=== PATIENT | male | born 1985 | race Caucasian/White ===

== ENCOUNTER 2020-04-27 20:01 | Inpatient (IN) | payer OTHER ==
[~2020-04-27] VITALS: Ht 170.2 cm; Wt 96.2 kg
--- NOTE | 2020-04-27 20:01 | NUR ---
[id number] FROM HOME FOR PALPITATIONS SINCE YDAY, WORSE IN LAST 3HRS, PT AAOX4, DENIES ANY SOB. PLACED ON MONITOR. VSS. PENDING ER PROVIDER JENS
[2020-04-27] MEDS ORDERED: DILTIAZEM HCL 25 MG IV ONE ×2 (20:23→22:08)
[2020-04-27] MEDS ORDERED: IV NS 0.9% 1,000 ML BAG IV ONE (20:30)
[2020-04-27] MEDS ORDERED: DILTIAZEM HCL 25 MG IV IV ONE (20:30)
[2020-04-27 20:48] LABS: BASOPHILS % (AUTO) 0.5 % (0.0-2.0); EOSINOPHILS % (AUTO) 2.9 % (0.0-6.0); HEMATOCRIT 43 % (39-51); HEMOGLOBIN 14.7 g/dL (13.5-17.5); LYMPHOCYTES # (AUTO) 1.4 /CMM (0.8-4.8); LYMPHOCYTES % (AUTO) 33.6 % (20.0-44.0); MEAN CORPUSCULAR HGB CONC 34 g/dl (31.0-36.0); MEAN CORPUSCULAR VOLUME 99 fL (80-96); MONOCYTES # (AUTO) 0.3 /CMM (0.1-1.30); MONOCYTES % (AUTO) 7.3 % (2.0-12.0); NEUTROPHILS # (AUTO) 2.4 /CMM (1.8-8.9); NEUTROPHILS % (AUTO) 55.7 % (43.0-81.0); PLATELET COUNT (AUTO) 101 /CMM (150-450); RED BLOOD CELL COUNT(AUTO) 4.35 MIL/uL (4.5-6.0); WHITE BLOOD COUNT (AUTO) 4.3 K/uL (4.3-11.0)
[2020-04-27] MEDS ORDERED: DILTIAZEM HCL 50 MG IV IV ONE (21:00)
[2020-04-27 21:05] LABS: CALCIUM, SERUM 9.3 mg/dL (8.5-10.1); CARBON DIOXIDE 22 mmol/L (21-32); CHLORIDE 102 mmol/L (98-107); GLUCOSE 115 mg/dL (74-106); SODIUM SERUM 140 mmol/L (136-145); UREA NITROGEN, BLOOD 9 mg/dL (7-18)
[2020-04-27 21:17] LABS: ALANINE AMINOTRANSFERASE 546 U/L (12-78); ALBUMIN 4.1 g/dL (3.4-5.0); ALKALINE PHOSPHATASE 100 U/L (46-116); ASPARTATE AMINOTRANSFERASE 348 U/L (15-37); B-TYPE NATRIURETIC PEPTIDE 146 PG/ML (0-125); BILIRUBIN,DIRECT 0.2 mg/dL (0.0-0.2); BILIRUBIN,TOTAL 0.5 mg/dL (0.2-1.0); TOTAL PROTEIN, SERUM 7.3 g/dL (6.4-8.2)
[2020-04-27] MEDS ORDERED: POTASSIUM CHLORIDE 20 MEQ TAB.PRT.SR PO ONE ×2 (21:30→22:58)
[2020-04-27 21:33] LABS: MAGNESIUM 2.3 mg/dL (1.8-2.4)
[2020-04-27] MEDS ORDERED: ACETAMINOPHEN 325 MG TABLET PO PRN (22:00)
[2020-04-27] MEDS ORDERED: TEMAZEPAM 15 MG CAPSULE PO PRN (22:00)
[2020-04-27] MEDS ORDERED: HYDROCODONE/APAP 5/325MG TABLET PO PRN (22:00)
[2020-04-27] MEDS ORDERED: MORPHINE SULFATE INJ 2 MG/ML DISP.SYRIN IV PRN (22:00)
[2020-04-27] MEDS ORDERED: ONDANSETRON HCL/PF 4 MG/2 ML VIAL IVP PRN (22:00)
[2020-04-27] MEDS ORDERED: MAG HYDROX/AL HYDROX/SIMETH 30 ML UDC PO PRN (22:00)
[2020-04-27] MEDS ORDERED: Z GUARD REMEDY 2 OZ OINT TP PRN (22:00)
[2020-04-27] MEDS ORDERED: LORAZEPAM INJ 2 MG/ML VIAL IV PRN (22:00)
[2020-04-27] MEDS ORDERED: MAGNESIUM HYDROXIDE 30 ML UDC PO PRN (22:00)
[2020-04-27] MEDS ORDERED: DILTIAZEM HCL 50 MG IV ONE (22:08)
[2020-04-27] MEDS: DILTIAZEM HCL IV 125 MG in IV NS 0.9% 100 ML IV PRN (22:08)
--- NOTE | 2020-04-27 22:47 | NUR ---
REPORT GIVEN KARI RIVERA FOR SARAH PT WILL BE TRANSPORTED TO 1ST FLOOR
--- NOTE | 2020-04-27 23:00 | NUR ---
RN ADMITTING NOTE RECEIVED PATIENT FROM ER VIA [facility] ACCOMPANIED BY SOHAM RIVERA AND ANOTHER ER STAFF; ADMITTING DIAGNOSIS OF ATRIAL FIBRILLATION WITH RVR, AND CHEST PAIN; COVID RAPID TEST DONE, RESULT IS NEGATIVE. PATIENT AWAKE, ALERT AND ORIENTED X4. PRIMARY LANGUAGE IS [place], BUT SPEAKS AND UNDERSTANDS PORTUGUESE. DENIES PAIN. IN NO S/SX OF ACUTE DISTRESS AT THIS TIME. NO SOB NOTED. PATIENT'S BREATHING IS EVEN AND UNLABORED. SATURATION 97% ON ROOM AIR, AFIB WITH RVR ON THE MONITOR, HR AT 120'S. NOTED IV SITE AT L HAND/WRIST [id number], FLUSHING AND PATENT, NO S/S OF INFECTION OR INFILTRATION, WITH CARDIZEM DRIP INFUSING AT 5 MG/HR. SAFETY MEASURES IMPLEMENTED. PATIENT BED ALARM IS ON. HEAD OF BED ELEVATED. BED IS LOCKED, IN LOWEST POSITION AND SIDE RAILS UP. CALL LIGHT WITHIN REACH OF THE PATIENT. WILL CONTINUE TO MONITOR AND REASSESS FOR ANY CHANGES. WILL ATTEND TO ALL MD ADMITTING ORDERS.
[2020-04-27] MEDS: IV NS 0.9% 1,000 ML IV PRN (23:25)
[2020-04-28] VITALS: BP 124/55
[2020-04-28 04:00] VITALS: BP 101/59
[2020-04-28 06:46] LABS: BASOPHILS % (AUTO) 0.6 % (0.0-2.0); EOSINOPHILS % (AUTO) 4.2 % (0.0-6.0); HEMATOCRIT 43 % (39-51); HEMOGLOBIN 14.4 g/dL (13.5-17.5); LYMPHOCYTES % (AUTO) 37.1 % (20.0-44.0); MEAN CORPUSCULAR HGB CONC 34 g/dl (31.0-36.0); MEAN CORPUSCULAR VOLUME 100 fL (80-96); MONOCYTES # (AUTO) 0.4 /CMM (0.1-1.30); MONOCYTES % (AUTO) 6.8 % (2.0-12.0); NEUTROPHILS # (AUTO) 2.7 /CMM (1.8-8.9); NEUTROPHILS % (AUTO) 51.3 % (43.0-81.0); PLATELET COUNT (AUTO) 94 /CMM (150-450); RED BLOOD CELL COUNT(AUTO) 4.25 MIL/uL (4.5-6.0); WHITE BLOOD COUNT (AUTO) 5.3 K/uL (4.3-11.0)
--- NOTE | 2020-04-28 07:05 | NUR ---
RN OPENING NOTES RECEIVED PT AWAKE, A/O X4. ON ROOM AIR, SATURATION @97%. NO SOB OR ANY S/SX OF ACUTE DISTRESS AT THIS TIME. NO PAIN REPORTED. AFIB WITH RVR ON TELE MONITOR. IV SITE AT L HAND #18 INTACT, PATENT AND FLUSHED. NS RUNNING @100ML/HR WITH CARDIZEM DRIP INFUSING AT 10MG/HR. SAFETY MEASURES IMPLEMENTED. CALL LIGHT WITHIN REACH. BED ALARM ON. HOB ELEVATED. BED LOCKED AND IN LOWEST POSITION WITH SIDE RAILS UP X2. WILL CONTINUE TO MONITOR.
[2020-04-28] MEDS: DILTIAZEM HCL IV 125 MG in IV NS 0.9% 100 ML IV PRN (07:07)
[2020-04-28 07:11] LABS: CALCIUM, SERUM 8.2 mg/dL (8.5-10.1); PHOSPHORUS 3.3 mg/dL (2.5-4.9); POTASSIUM 3.6 mmol/L (3.5-5.1)
--- NOTE | 2020-04-28 07:25 | NUR ---
RN NOTES DR. ZENG ORDERED TO DC CONRADO PADILLA. ORDER CARRIED OUT.
[2020-04-28 07:35] LABS: THYROID STIMULATING HORMONE 2.801 uIU/mL (0.358-3.74)
[2020-04-28] MEDS: Magnesium 1GM/D5W 100ML PREMIX 100 ML IV SCH ×2 (07:37→08:41)
[2020-04-28] MEDS: PANTOPRAZOLE 40 MG TABLET.DR PO SCH (07:38)
--- NOTE | 2020-04-28 07:45 | NUR ---
RN NOTES EKG RESULTS REPORTED TO DR. ZENG.
[2020-04-28 08:00] VITALS: BP 111/58
[2020-04-28] MEDS ORDERED: FLECAINIDE ACETATE (100 MG) 100 MG TABLET PO ONE (08:00)
[2020-04-28] MEDS: ASPIRIN 325 MG TABLET PO SCH (08:41)
[2020-04-28 08:47] LABS: ALBUMIN 3.5 g/dL (3.4-5.0); BILIRUBIN,DIRECT 0.3 mg/dL (0.0-0.2); BILIRUBIN,TOTAL 1.1 mg/dL (0.2-1.0); TOTAL PROTEIN, SERUM 6.5 g/dL (6.4-8.2)
[2020-04-28] MEDS ORDERED: FLECAINIDE ACETATE (100 MG) 100 MG TABLET PO SCH ×2 (09:00→21:00)
[2020-04-28 12:00] VITALS: BP 111/72
[2020-04-28] MEDS: IV NS 0.9% 1,000 ML IV PRN (14:16)
[2020-04-28 16:00] VITALS: BP 103/77
--- NOTE | 2020-04-28 18:46 | NUR ---
RN CLOSING NOTES NO SIGNIFICANT CHANGES THROUGHOUT THE SHIFT. NO SOB. NO PAIN REPORTED AT THIS TIME. DUE MEDS GIVEN. NEEDS ATTENDED. SAFETY MEASURES MAINTAINED. WILL ENDORSE TO NIGHT NURSE FOR SARAH.
--- NOTE | 2020-04-28 19:00 | NUR ---
RN OPENING NOTE RECEIVED PATIENT IN BED RESTING ALERT ORIENTED X4 VERBALLY RESPONSIVE ON ROOM AIR O2:98% IV SITE IS ON LEFT HAND INTACT PATENT IV HYDRATION NORMAL SALINE 0.9% RUNNING 100CC/HR AMBULATORY CONTINENT TO BOWEL/BLADDER SAFETY MEASURE IMPLEMENT CALL LIGHT WITHIN REACH,BED LOCKED AND IN LOW POSITON CONTINUE TO MONITOR.
[2020-04-28 20:00] VITALS: BP 117/71
[2020-04-28] MEDS: FLECAINIDE ACETATE (100 MG) 100 MG TABLET PO SCH (20:30)
[2020-04-29] VITALS: BP 119/70
[2020-04-29 04:00] VITALS: BP 123/77
--- NOTE | 2020-04-29 06:24 | NUR ---
RN CLOSING NOTE PATIENT REMAINS ON ALERT ORIENTED VERBALLY RESPONSIVE NO SOB NOT ACUTE DISTRESS NOTED ON ROOM AIR 98% IV SITE IS LEFT HAND INTACT PATENT,ALL DUE MED GIVEN MD ORDERED,KEPT COMFORTABLE KEPT CLEAN AND DRY ALL THE TIME,KEPT CALL LIGHT WITHIN REACH,ENDORSE NEXT COMING SHIFT FOR CONTINUATION OF CARE
[2020-04-29 06:52] LABS: BASOPHILS % (AUTO) 0.3 % (0.0-2.0); EOSINOPHILS % (AUTO) 2.9 % (0.0-6.0); HEMATOCRIT 39 % (39-51); HEMOGLOBIN 13.6 g/dL (13.5-17.5); LYMPHOCYTES # (AUTO) 1.1 /CMM (0.8-4.8); LYMPHOCYTES % (AUTO) 18.9 % (20.0-44.0); MEAN CORPUSCULAR HGB CONC 35 g/dl (31.0-36.0); MEAN CORPUSCULAR VOLUME 99 fL (80-96); MONOCYTES # (AUTO) 0.3 /CMM (0.1-1.30); MONOCYTES % (AUTO) 4.9 % (2.0-12.0); NEUTROPHILS # (AUTO) 4.2 /CMM (1.8-8.9); PLATELET COUNT (AUTO) 83 /CMM (150-450); RED BLOOD CELL COUNT(AUTO) 3.94 MIL/uL (4.5-6.0); WHITE BLOOD COUNT (AUTO) 5.7 K/uL (4.3-11.0)
[2020-04-29 06:54] LABS: POTASSIUM 3.9 mmol/L (3.5-5.1)
--- NOTE | 2020-04-29 07:30 | NUR ---
RN OPENING NOTES RECEIVED PT AWAKE, A/O X4. ON ROOM AIR, SATURATION @97%. NO SOB OR ANY S/SX OF ACUTE DISTRESS AT THIS TIME. NO PAIN REPORTED. AFIB WITH RVR ON TELE MONITOR. IV SITE AT L HAND #18 INTACT, PATENT AND FLUSHED. PATIENT REFUSING IV FLUIDS AT THIS TIME. SAFETY MEASURES IMPLEMENTED. CALL LIGHT WITHIN REACH. BED ALARM ON. HOB ELEVATED. BED LOCKED AND IN LOWEST POSITION WITH SIDE RAILS UP X2. WILL CONTINUE TO MONITOR AND PROVIDE TREATMENT.
[2020-04-29 08:00] VITALS: BP 125/67
[2020-04-29] MEDS: FLECAINIDE ACETATE (100 MG) 100 MG TABLET PO SCH (08:51)
[2020-04-29] MEDS: PANTOPRAZOLE 40 MG TABLET.DR PO SCH (08:51)
[2020-04-29] MEDS: ASPIRIN 325 MG TABLET PO SCH (08:51)
[2020-04-29 09:58] LABS: EOSINOPHILS % (MANUAL) 1 % (0-4); LYMPHOCYTES % (MANUAL) 16 % (16-48); MONOCYTES % (MANUAL) 5 % (0-11.0); NEUTROPHILS % (MANUAL) 78 (42-76)
[2020-04-29] MEDS ORDERED: FLEC100T2 PO (11:01)
--- NOTE | 2020-04-29 11:55 | NUR ---
DISCHARGE NOTE PATIENT DISCHARGED HOME VIA PRIVATE CAR, PICKED UP BY . IV REMOVED PRIOR TO DISCHARGE WITH NO S/S OF EXCESSIVE BLEEDING. NEW MEDICATION PRESCRIPTION PROVIDED TO PATIENT; ANSWERED DISCHARGE QUESTIONS. PATIENT STABLE AT TIME OF DISCHARGE, WENT HOME WITH ALL BELONGINGS.
--- NOTE | 2020-04-29 14:30 | NUR ---
[employer] Director: SW consult requested for alcohol abuse. SW attempted to meet with the patient but was told by RN Soon that the patient was discharged this morning. No further account services specialist interventions needed at this time.
== END 2020-04-29 13:30 | disposition home or self-care (01) | DRG 201 ==
LOC: ER 20:07 → EDBD 20:07 → TELE-TD 22:44 → TELE1 04-28 12:30
PROVIDERS: ADMIT Nurse Practitioner Acute Care; ATTEND Nurse Practitioner Acute Care
DX: I48.91 Unspecified atrial fibrillation (principal); E83.42 Hypomagnesemia; E87.6 Hypokalemia; E66.9 Obesity, unspecified; F17.210 Nicotine dependence, cigarettes, uncomplicated; K76.0 Fatty (change of) liver, not elsewhere classified; Z68.33 Body mass index [BMI] 33.0-33.9, adult; Y90.6 Blood alcohol level of 120-199 mg/100 ml; R74.01 Elevation of levels of liver transaminase levels; R73.9 Hyperglycemia, unspecified; R16.1 Splenomegaly, not elsewhere classified; K70.9 Alcoholic liver disease, unspecified
CPT/HCPCS: 36415; 71045-TC; 76700-TC; 80048-TC; 80061-TC; 80076-TC; 83735-TC; 83880; 84100-TC; 84439-TC; 84443-TC; 84484-TC; 85025-TC; 85730-TC; 87081-TC; 93307-TC; C9803; G0378; G0480; J3475; J3490; J7030

== ENCOUNTER 2024-06-11 21:02 | Inpatient (IN) | payer OTHER ==
[~2024-06-11] VITALS: Ht 175.3 cm; Wt 93.0 kg
[2024-06-11] MEDS: DILTIAZEM HCL 50 MG IV IV ONE ×2 (20:50→21:23)
[~2024-06-11 21:02] MED LIST: FLEC100T2 PO
[2024-06-11] MEDS ORDERED: DILTIAZEM HCL 25 MG IV ONE ×2 (21:21→21:48)
[2024-06-11 21:45] LABS: BASOPHILS % (AUTO) 0.7 % (0.0-2.0); EOSINOPHILS # (AUTO) 0.1 K/uL (0.0-0.7); HEMATOCRIT 42 % (39-51); HEMOGLOBIN 14.7 g/dL (13.5-17.5); LYMPHOCYTES # (AUTO) 1.8 K/uL (0.8-4.8); LYMPHOCYTES % (AUTO) 39.7 % (20.0-44.0); MEAN CORPUSCULAR HEMOGLOBIN 34 PG (26.0-33.0); MEAN CORPUSCULAR HGB CONC 35 g/dl (31.0-36.0); MEAN CORPUSCULAR VOLUME 96 fL (80-96); MONOCYTES # (AUTO) 0.3 K/uL (0.1-1.30); MONOCYTES % (AUTO) 7.1 % (2.0-12.0); NEUTROPHILS # (AUTO) 2.2 K/uL (1.8-8.9); NEUTROPHILS % (AUTO) 49.5 % (43.0-81.0); PLATELET COUNT (AUTO) 99 K/uL (150-450); RED BLOOD CELL COUNT(AUTO) 4.33 MIL/uL (4.5-6.0); RED CELL DISTRIBUTION WIDTH 12.5 % (11.5-15.0); WHITE BLOOD COUNT (AUTO) 4.4 K/uL (4.3-11.0)
[2024-06-11] MEDS ORDERED: DILTIAZEM HCL 30 MG TABLET ONE (21:47)
[2024-06-11] MEDS: IV NS 0.9% 1,000 ML BAG IV ONE (21:55)
[2024-06-11 21:56] LABS: CARBON DIOXIDE 25 mmol/L (21-32); CHLORIDE 100 mmol/L (98-107); CREATININE 0.9 mg/dL (0.6-1.3); GLUCOSE 158 mg/dL (74-106); POTASSIUM 3.4 mmol/L (3.5-5.1); SODIUM SERUM 141 mmol/L (136-145); UREA NITROGEN, BLOOD 11 mg/dL (7-18)
[2024-06-11] MEDS: DILTIAZEM HCL 30 MG TABLET PO ONE (22:00)
[2024-06-11 22:08] LABS: INR 1.05 (0.91-1.10); PARTIAL THROMBOPLASTIN TIME 25.2 SEC (24.3-34.3); PROTHROMBIN TIME 11.1 SECS (9.2-11.1)
[2024-06-11 22:09] LABS: ALANINE AMINOTRANSFERASE 264 U/L (12-78); ALBUMIN 4.5 g/dL (3.4-5.0); ALKALINE PHOSPHATASE 86 U/L (46-116); ASPARTATE AMINOTRANSFERASE 118 U/L (15-37); BILIRUBIN,DIRECT 0.2 mg/dL (0.0-0.2); BILIRUBIN,TOTAL 0.6 mg/dL (0.2-1.0); NT-PRO BNP 15 pg/mL (0-125); TOTAL PROTEIN, SERUM 7.8 g/dL (6.4-8.2)
[2024-06-11] MEDS ORDERED: MAG HYDROX/AL HYDROX/SIMETH 30 ML UDC PO PRN (23:00)
[2024-06-11] MEDS ORDERED: MAGNESIUM HYDROXIDE 30 ML UDC PO PRN (23:00)
[2024-06-11] MEDS ORDERED: ONDANSETRON HCL/PF 4 MG/2 ML VIAL IVP PRN (23:00)
[2024-06-11] MEDS ORDERED: ACETAMINOPHEN 325 MG TABLET PO PRN (23:00)
[2024-06-12 00:10] VITALS: BP 110/65; TEMP 98.8; O2SAT 97
[2024-06-12 00:14] LABS: LYMPHOCYTES % (MANUAL) 44 % (16-48); MONOCYTES % (MANUAL) 4 % (0-11.0); NEUTROPHILS % (MANUAL) 52 (42-76)
[2024-06-12 00:15] LABS: PLATELET ESTIMATE DECREASED
[2024-06-12 00:21] LABS: TEAR DROP CELLS FEW
[2024-06-12] MEDS: IV NS 0.9% 1,000 ML IV SCH (01:06)
[2024-06-12] MEDS ORDERED: AMIODARONE 150 MG/3 ML VIAL IV ONE ×2 (01:09→01:33)
[2024-06-12] MEDS: AMIODARONE 150 MG in IV D5W 100 ML IV ONE (01:24)
[2024-06-12] MEDS: AMIODARONE 450 MG in IV D5W 241 ML IV PRN (01:42)
[2024-06-12 04:00] VITALS: BP 118/84; TEMP 98.2; O2SAT 98
[2024-06-12 07:28] LABS: BASOPHILS % (AUTO) 0.4 % (0.0-2.0); EOSINOPHILS # (AUTO) 0.1 K/uL (0.0-0.7); HEMATOCRIT 39 % (39-51); HEMOGLOBIN 13.8 g/dL (13.5-17.5); LYMPHOCYTES # (AUTO) 1.6 K/uL (0.8-4.8); LYMPHOCYTES % (AUTO) 32.7 % (20.0-44.0); MEAN CORPUSCULAR HEMOGLOBIN 34 PG (26.0-33.0); MEAN CORPUSCULAR HGB CONC 36 g/dl (31.0-36.0); MEAN CORPUSCULAR VOLUME 96 fL (80-96); MONOCYTES # (AUTO) 0.4 K/uL (0.1-1.30); MONOCYTES % (AUTO) 7.5 % (2.0-12.0); NEUTROPHILS # (AUTO) 2.8 K/uL (1.8-8.9); NEUTROPHILS % (AUTO) 56.4 % (43.0-81.0); PLATELET COUNT (AUTO) 87 K/uL (150-450); RED BLOOD CELL COUNT(AUTO) 4.04 MIL/uL (4.5-6.0); RED CELL DISTRIBUTION WIDTH 12.3 % (11.5-15.0); WHITE BLOOD COUNT (AUTO) 4.9 K/uL (4.3-11.0)
[2024-06-12] MEDS ORDERED: IV NS 0.9% 1,000 ML IV PRN (07:39)
[2024-06-12] MEDS: POTASSIUM CHLORIDE 20 MEQ TAB.PRT.SR PO ONE (07:42)
[2024-06-12 07:50] LABS: ALBUMIN 3.7 g/dL (3.4-5.0); BILIRUBIN,DIRECT 0.2 mg/dL (0.0-0.2); BILIRUBIN,TOTAL 0.7 mg/dL (0.2-1.0); CALCIUM, SERUM 8.9 mg/dL (8.5-10.1); CREATININE 0.7 mg/dL (0.6-1.3); MAGNESIUM 1.8 mg/dL (1.8-2.4); PHOSPHORUS 4.1 mg/dL (2.5-4.9); POTASSIUM 3.5 mmol/L (3.5-5.1); TOTAL PROTEIN, SERUM 6.5 g/dL (6.4-8.2)
[2024-06-12 08:00] VITALS: BP 105/80; TEMP 98.4; O2SAT 97
[2024-06-12 08:06] LABS: THYROID STIMULATING HORMONE 2.5 uIU/mL (0.358-3.74)
[2024-06-12] MEDS: Magnesium 1GM/D5W 100ML PREMIX 100 ML IV SCH (09:52)
[2024-06-12] MEDS: ACETAMINOPHEN 325 MG TABLET PO PRN (09:52)
[2024-06-12] MEDS: FLECAINIDE ACETATE (100 MG) 100 MG TABLET PO SCH (10:26)
[2024-06-12 11:43] LABS: ANISOCYTOSIS 1+; EOSINOPHILS % (MANUAL) 2 % (0-4); LYMPHOCYTES % (MANUAL) 29 % (16-48); MONOCYTES % (MANUAL) 3 % (0-11.0); NEUTROPHILS % (MANUAL) 66 (42-76); PLATELET ESTIMATE DECREASED; STOMATOCYTES 1+
[2024-06-12 12:00] VITALS: BP 117/81; TEMP 98.2; O2SAT 97
[2024-06-12 16:00] VITALS: BP 107/73; TEMP 98.4; O2SAT 98
[2024-06-12 20:00] VITALS: BP 120/82; TEMP 98.2; O2SAT 98
[2024-06-13] VITALS: BP 124/83; TEMP 98.8; O2SAT 98
[2024-06-13 04:00] VITALS: BP 112/85; TEMP 98.2; O2SAT 98
[2024-06-13 06:51] LABS: BASOPHILS % (AUTO) 0.4 % (0.0-2.0); EOSINOPHILS # (AUTO) 0.1 K/uL (0.0-0.7); EOSINOPHILS % (AUTO) 3.6 % (0.0-6.0); HEMATOCRIT 37 % (39-51); HEMOGLOBIN 12.9 g/dL (13.5-17.5); LYMPHOCYTES # (AUTO) 1.3 K/uL (0.8-4.8); LYMPHOCYTES % (AUTO) 30.7 % (20.0-44.0); MEAN CORPUSCULAR HEMOGLOBIN 34 PG (26.0-33.0); MEAN CORPUSCULAR HGB CONC 35 g/dl (31.0-36.0); MEAN CORPUSCULAR VOLUME 96 fL (80-96); MONOCYTES # (AUTO) 0.2 K/uL (0.1-1.30); MONOCYTES % (AUTO) 5.2 % (2.0-12.0); NEUTROPHILS # (AUTO) 2.5 K/uL (1.8-8.9); NEUTROPHILS % (AUTO) 60.1 % (43.0-81.0); PLATELET COUNT (AUTO) 77 K/uL (150-450); RED CELL DISTRIBUTION WIDTH 12.5 % (11.5-15.0); WHITE BLOOD COUNT (AUTO) 4.1 K/uL (4.3-11.0)
[2024-06-13 07:08] LABS: ALBUMIN 3.9 g/dL (3.4-5.0); BILIRUBIN,TOTAL 0.9 mg/dL (0.2-1.0); CALCIUM, SERUM 9.5 mg/dL (8.5-10.1); CREATININE 0.8 mg/dL (0.6-1.3); MAGNESIUM 2.3 mg/dL (1.8-2.4); PHOSPHORUS 4.3 mg/dL (2.5-4.9); POTASSIUM 3.7 mmol/L (3.5-5.1); TOTAL PROTEIN, SERUM 6.6 g/dL (6.4-8.2)
[2024-06-13 08:00] VITALS: BP 110/78; TEMP 98.6; O2SAT 98
[2024-06-13] MEDS ORDERED: FLEC100T3 PO (09:08)
[2024-06-13 11:45] LABS: EOSINOPHILS % (MANUAL) 5 % (0-4); LYMPHOCYTES % (MANUAL) 24 % (16-48); MONOCYTES % (MANUAL) 5 % (0-11.0); NEUTROPHILS % (MANUAL) 66 (42-76); PLATELET ESTIMATE DECREASED
[2024-06-13 11:46] LABS: ANISOCYTOSIS 1+
[2024-06-13] MEDS ORDERED: KETOROLAC TROMETHAMINE 15 MG/ML VIAL ONE (12:26)
== END 2024-06-13 12:55 | disposition home or self-care (01) | DRG 201 ==
LOC: ER 21:04 → TELE1 06-12 00:01 → TELE-TD 06-12 00:14 → TELE1 06-12 10:37
PROVIDERS: ATTEND Internal Medicine
DX: I48.91 Unspecified atrial fibrillation (principal); E66.9 Obesity, unspecified; F17.210 Nicotine dependence, cigarettes, uncomplicated; I10 Essential (primary) hypertension; Z68.30 Body mass index [BMI] 30.0-30.9, adult; Z91.148 Patient's other noncompliance with medication regimen for other reason; Z79.899 Other long term (current) drug therapy; F10.11 Alcohol abuse, in remission; R74.01 Elevation of levels of liver transaminase levels
CPT/HCPCS: 36415; 71045-TC; 80048-TC; 80053-TC; 80061-TC; 80076-TC; 83735-TC; 83880; 84100-TC; 84443-TC; 84484-TC; 85025-TC; 85730-TC; 86850-TC; 93307-TC; A4223; G0378; G0480; J0282; J1885; J3475; J3490; J7030; J7060